=== PATIENT | female | born 1930 | race Caucasian/White ===

== ENCOUNTER → 2018-03-23 | Outpatient (CLI) | payer OTHER | LOC: BMCIMAGING 10:35 | PROVIDERS: ATTEND Orthopaedic Surgery | DX: M17.0 Bilateral primary osteoarthritis of knee (principal) ==

== ENCOUNTER 2018-10-29 17:02 | Emergency (ER) | payer OTHER ==
--- NOTE | 2018-10-29 17:58 | EDPHY ---
H & P Stated Complaint: wheezing Time Seen by Provider: 10/29/18 17:29 HPI/ROS: CHIEF COMPLAINT: Wheezing HISTORY OF PRESENT ILLNESS: 80-year-old female with CAD and CHF presents with wheezing. Over the last several months, her family has noticed that she wheezes when they talk to her on the phone. Her daughter has noticed increased intermittent wheezing, usually at rest, and sometimes with exertion. Patient denies wheezing, shortness of breath or chest pain. She has a chronic morning cough without recent change. No fever. She had a heart attack 2 years ago and was diagnosed with congestive heart failure. She was on a diuretic for a short while, but stopped the diuretic because it made her feel bad. No leg swelling. REVIEW OF SYSTEMS: complete 10 point ROS reviewed and is negative except for the noted elements in the HPI - Personal History Current Tetanus/Diphtheria Vaccine: Unsure Current Tetanus Diphtheria and Acellular Pertussis (TDAP): Unsure - Medical/Surgical History Hx Asthma: No Hx Chronic Respiratory Disease: No Hx Diabetes: No Hx Cardiac Disease: No Hx Renal Disease: No Hx Cirrhosis: No Hx Alcoholism: No Hx HIV/AIDS: No Hx Splenectomy or Spleen Trauma: No Other PMH: CAD, congestive heart failure, brain surgery, TBI - Social History Smoking Status: Never smoked Alcohol Use: Sober Drug Use: None - Physical Exam Exam: General Appearance: Alert, pleasant Eyes: Pupils equal and round, no conjunctival pallor or injection ENT, Mouth: Mucous membranes moist Neck: Normal inspection, no stridor Respiratory: Lungs are clear to auscultation, no wheezing Cardiovascular: Regular rate and rhythm, HR 96 Gastrointestinal: Abdomen is soft and nontender Neurological: A&O, nonfocal, normal gait Skin: Warm and dry, no rash Extremities: Nontender, no pedal edema Psychiatric: Mood and affect normal Constitutional: Initial Vital Signs Temperature (C) 36.5 C 10/29/18 17:08 Heart Rate 116 H 10/29/18 17:08 Respiratory Rate 16 10/29/18 17:08 Blood Pressure 160/91 H 10/29/18 17:08 O2 Sat (%) 91 L 10/29/18 17:08 O2 Delivery Mode Room Air Allergies/Adverse Reactions: No Known Allergies Allergy (Unverified 10/29/18 17:07) Home Medications: Medication Instructions Recorded Aspirin EC 81 mg (*) 10/29/18 Furosemide [Lasix 20 MG (*)] 20 mg PO DAILY #5 tab 10/29/18 Glucosamine/MSM/Chondroitin A 10/29/18 Potassium Cl [Klor-Con 20 meq (*)] 20 meq PO DAILY #5 tab 10/29/18 Vitamin D3 10/29/18 Medical Decision Making - Diagnostics EKG Interpretation: EKG interpreted by me reveals sinus tachycardia, rate 100, PVCs, LVH, inferior Q -waves. Interpretation: Abnormal EKG Imaging Results: Chest X-Ray 10/29/18 17:54 Impression: Interstitial prominence bilaterally suggesting underlying interstitial lung disease and fibrosis, more predominant at both lung bases. No definite acute cardiopulmonary abnormality. Other chronic findings, as above. Soft Tissue Neck X-Ray 10/29/18 17:54 Impression: No evidence for prevertebral soft tissue swelling or airway obstruction. Chronic findings as above. Imaging: I viewed and interpreted images myself ED Course/Re-evaluation: This pt presents with intermittend audible wheezing. HR 116 on arrival. EKG: ST, 100, no ischemic changes. As I am interviewing this patient, I hear an occasional wheeze when she talks. Unclear is the wheezing is with inspiration or expiration. Physical exam is normal without stridor or wheezing. Query upper airway obstruction. Soft tissue neck x-ray and CXR are unremarkable. Discussed with patient and her family, consider follow up with ENT for further evaluation of audible wheezing. Laboratory studies reveal elevated BNP. Discussed with family, ?CHF contributing to wheezing. She also has leukocytosis , without evidence of infection. Results d/w pt and family. Admission advised , pt refuses. The patient ambulated throughout the emergency department and oxygen saturation remained 88% on room air. She denied shortness of breath. We discussed using starting diuretics again. The patient and her family would like to have a short trial of diuretics and see if this helps. A 5 day course of Lasix/KCl given. Warning signs discussed, including SOB and any sign of infection. d/w pt/family slightly elevated HR as well. She will follow up with her primary care physician. Differential Diagnosis: Differential diagnosis for wheezing includes though it is not limited to upper airway obstruction, CHF, pneumonia, pneumothorax, pulmonary embolism, aortic dissection, pericarditis, acute coronary syndrome. - Data Points Laboratory Results: Laboratory Results 10/29/18 17:40 10/29/18 17:40 Departure - Departure Disposition: Home, Routine, Self-Care Clinical Impression: Wheezing Condition: Good Instructions: Furosemide (By mouth), Potassium Chloride (By mouth), Heart Failure (ED), Wheezing (ED) Additional Instructions: Your BNP is quite elevated today at 12,800. This is an indicator of congestive heart failure. Signs of CHF include shortness of breath and leg swelling. Your white blood cell count is elevated. This may indicate an infection. If you develop signs of infection, please see your doctor or return to the ER. Make an appointment to see your doctor in 1-2 days for recheck. I also advise you to see an ENT doctor for the wheezing. Return with any concerns. Referrals: Dyana Nolan MD [[facility] Primary Care Provider] - As per Instructions Prescriptions: Furosemide [Lasix 20 MG (*)] 20 mg PO DAILY #5 tab Potassium Cl [Klor-Con 20 meq (*)] 20 meq PO DAILY #5 tab
[2018-10-29 18:01] LABS: PLATELET COUNT 529 10^3/uL (150-400)
[2018-10-29 19:23] VITALS: BP 148/74
--- NOTE | 2018-10-29 21:00 | CPEKG ---
Test Reason : OPEN Blood Pressure : / mmHG Vent. Rate : 100 BPM Atrial Rate : 099 BPM P-R Int : 138 ms QRS Dur : 101 ms QT Int : 377 ms P-R-T Axes : 049 034 -20 degrees QTc Int : 487 ms Sinus tachycardia Multiple ventricular premature complexes Probable left atrial enlargement LVH with secondary repolarization abnormality Inferior infarct, age indeterminate Confirmed by Siobhan Gonzales ([id number]) on 10/29/2018 9:00:13 PM Referred By: Confirmed By:Siobhan Gonzales
--- NOTE | 2018-10-30 14:20 | ASMTCMCOM ---
CM Note CM Note Notes: Call from Pt son [place] with concern for the pt running out of prescribed medication. He stated that she was only given 5 days of Furosemide and PCP follow up was not until December 07. This screenplay writer called the PCP identified by [place]. An appointment is scheduled with Dr. Forrest on December 06 at 11:00AM. She will still keep the appointment with Dr. Vidales on December 07 at 10:00AM. Address: [address] [place] [address] ph: [phone]. [place] requested that the appointment days/times be emailed to [email or web address] Email sent CM available for additional assistance if needed. Date Signed: 10/30/2018 02:19 PM Electronically Signed By:Cathy Crain LCSW
== END 2018-10-29 20:41 | disposition home or self-care (01) ==
DX: R06.2 Wheezing (principal); I25.10 Atherosclerotic heart disease of native coronary artery without angina pectoris; I50.9 Heart failure, unspecified; Z87.820 Personal history of traumatic brain injury